=== PATIENT | male | born 1935 | race Caucasian/White ===

== ENCOUNTER 2019-01-02 07:30 | Inpatient (IN) | payer MEDICARE, OTHER ==
[2018-12-24 15:57] LABS: BASOPHILS # (AUTO) 0.1 X10'3 (0-0.2); EOSINOPHILS # (AUTO) 0.5 X10'3 (0-0.9); EOSINOPHILS % (AUTO) 7.2 % (0-6); LYMPHOCYTES # (AUTO) 1.8 X10'3 (1.1-4.8); LYMPHOCYTES % (AUTO) 27.7 % (21-51); MEAN CORPUSCULAR VOLUME 94.2 FL (78-98); MEAN PLATELET VOLUME 8.1 FL (7.4-10.4); MONOCYTES # (AUTO) 0.9 X10'3 (0-0.9); MONOCYTES % (AUTO) 14.6 % (2-12); NEUTROPHILS # (AUTO) 3.2 X10'3 (1.8-7.7); NEUTROPHILS % (AUTO) 49.5 % (42-75); PRE OP HEMATOCRIT 37.2 % (42.0-52.0); PRE OP HEMOGLOBIN 12.7 g/dL (14.0-17.9); PRE OP PLATELET COUNT 161 X10'3 (140-440); RED BLOOD COUNT 3.95 X10'6 (4.70-6.10); RED CELL DISTRIBUTION WIDTH 13.1 % (11.5-14.5)
[2018-12-24 16:19] LABS: ALBUMIN 3.7 G/DL (3.4-5.0); ALBUMIN/GLOBULIN RATIO 1.3 (1.1-1.5); ALKALINE PHOSPHATASE 70 IU/L (46-116); BLOOD UREA NITROGEN 27 MG/DL (7-18); BUN/CREATININE RATIO 23.1 (5.4-32.0); CHLORIDE 112 MMOL/L (99-107); CREATININE 1.17 MG/DL (0.60-1.10); PRE OP ALT 24 U/L (30-65); PRE OP ANION GAP 5 (8-16); PRE OP AST 19 U/L (10-37); PRE OP BILIRUB, TOTAL 0.5 MG/DL (0.0-1.0); PRE OP GLUCOSE 117 MG/DL (70-104); PRE OP SODIUM 143 MMOL/L (135-145); TOTAL CARBON DIOXIDE 26.1 MMOL/L (24-32); TOTAL PROTEIN 6.6 G/DL (6.4-8.2); eGFR 60 ML/MIN
[2018-12-24 16:21] LABS: PRE OP POTASSIUM 3.7 MMOL/L (3.4-5.1)
[2019-01-02] VITALS (16 sets, daily range): BP systolic 100–146; BP diastolic 48–98
[~2019-01-02] VITALS: Ht 182.9 cm; Wt 92.1 kg
[~2019-01-02 07:30] MED LIST: ASPI-12 PO; DOCUMENT DATE & TIME OF BETA-BLOCKER PO ONE; ESCI20TA29 PO; FURO-150 PO; LEVO50TA8 PO; NEBI5TAB10 PO; NIFE90TA2 PO; OMEP20TA5 PO; POTA20TA84 PO; SIMV20TA5 PO; TEMA30CA5 PO; VANCOMYCIN 1,500MG inj. 1,500 MG in normal saline 250ml IV soln 280 ML IV SCH; cefazolin/dext.iso 2gm/100 ML IV ONE; famotidine 20mg tablet PO ONE; ringers solution, lacted 1,000 ML IV SCH; tranexamic acid inj. 920 MG in normal saline 100ml IV soln 100 ML IV ONE
[2019-01-02] MEDS ORDERED: VANCOMYCIN 1,500MG inj. 1,500 MG in normal saline 250ml IV soln 280 ML IV ONE (08:25)
[2019-01-02] MEDS ORDERED: ROPIVAcaine 0.5% (5mg/ml) 30ml vial ONE ×2 (10:28→10:40)
[2019-01-02] MEDS ORDERED: ketorolac trometh. 30mg/ml inj. ONE (10:40)
[2019-01-02] MEDS ORDERED: LIDOcaine 1%/PF 5ML 10 MG/ML VIAL ONE (10:40)
[2019-01-02] MEDS ORDERED: propofol inj 20 ML IV ONE (10:40)
[2019-01-02] MEDS ORDERED: dexamethasone sod phosphate 10mg/ml inj ONE (11:25)
[2019-01-02] MEDS ORDERED: fentaNYL/PF 50MCG/1 ML 2ML syringe ONE (11:25)
[2019-01-02] MEDS ORDERED: sevoflurane 250ml liquid IH ONE (11:25)
[2019-01-02] MEDS ORDERED: midazolam 2 mg/2 ml injection ONE (11:25)
[2019-01-02] MEDS ORDERED: tranexamic acid inj. 920 MG in normal saline 100ml IV soln 100 ML IV ONE (11:35)
[2019-01-02] MEDS ORDERED: ondansetron/PF 4mg/2ml inj ONE (12:09)
[2019-01-02] MEDS ORDERED: ringers solution, lacted 1,000 ML IV SCH (12:31)
[2019-01-02] MEDS ORDERED: ROPIVAcaine 0.2%/PF PAIN PUMP 400 ML IJ SCH (12:31)
[2019-01-02] MEDS ORDERED: fentaNYL/PF 50MCG/1 ML 2ML syringe IV PRN ×2 (12:35)
[2019-01-02] MEDS ORDERED: morphine 4 MG/ML inj SYRINge IV PRN ×2 (12:35)
[2019-01-02] MEDS ORDERED: hydrALAZINE 20mg/ml inj. IV PRN (12:35)
[2019-01-02] MEDS ORDERED: ondansetron/PF 4mg/2ml inj IV PRN ×2 (12:35→14:05)
[2019-01-02] MEDS ORDERED: enalaprilat dihydrate 2.5mg/2ml vial IV PRN (12:35)
[2019-01-02] MEDS ORDERED: morphine 10mg/ml inj. ONE (13:20)
--- NOTE | 2019-01-02 13:57 | NUR ---
Received from OR via [facility]TH[facility] BED WITH [facility] , accompanied by Anesthesiologist MAY and report given by Anesthesiolgist. PATIENT WITH 18G PIV IN LEFT UE RUNNING LR AT 100. ORAL AIRWAY IN PLACE. RIGHT SLING ON, + RADIAL PULSE, POWDER PACK, AND SHOULDER WRAP. SCDS DONNED IN RR. 2 HEARING AIDS PRESENT AND GLASSES PRESENT. Addendum: 01/02/19 at 1410 by Negro Granados RN, RN Amended: Links added.
[2019-01-02] MEDS ORDERED: magnesium hydroxide 30ml (MOM) UD suspension PO PRN (14:05)
[2019-01-02] MEDS ORDERED: HYDROmorphone inj. 0.5 MG/0.5 ML DISP.SYRIN IV PRN (14:05)
[2019-01-02] MEDS ORDERED: diphenhydrAMINE 25mg capsule PO PRN ×2 (14:05)
[2019-01-02] MEDS ORDERED: oxyCODONE IR 5mg (immed. release) tablet PO PRN ×2 (14:05)
[2019-01-02] MEDS ORDERED: bisacodyl 10mg suppository rectal RC PRN (14:05)
[2019-01-02] MEDS ORDERED: acetaminophen 325mg tablet PO PRN (14:05)
[2019-01-02] MEDS ORDERED: HYDROmorphone 1 mg/ml syringe IV PRN (14:05)
--- NOTE | 2019-01-02 14:57 | NUR ---
ALL CRITERIA FOR TRANSFER TO THE FLOOR HAS BEEN ACHIEVED. VSS. BED LOW, CALL LIGHT AND VS. SET IN PLACE. RN PRESENT TO ACCEPT CARE. PATIENT RESTING COMFORTABLY IN BED. BELONGINGS SENT WITH PATIENT. DRESSINGS CDI. ONE BAG OF BELONGINGS, 2 HEARING AIDS PRESENT, DENTURES IN PATIENT MOUTH. PATIENT DENIES PAIN. CATALINA PEMBERTON PRESENT TO ACCEPT CARE AND ASSIST WITH SET UP OF VS ETC. CARE TURNED OVER. Addendum: 01/02/19 at 1508 by Negro Wolfe - CATALINA ARNOLD Amended: Links added.
--- NOTE | 2019-01-02 15:00 | NUR ---
ASSUMED CARE, RECEIVED REPORT FROM BOBBY ARNOLD, POST OP VITALS STARTED, FAMILY AT BEDSIDE, 0/10 PAIN, WILL CONTINUE TO MONITOR.
[2019-01-02] MEDS: ceFAZolin 1GM/D5W- ADD-VANTAGE 50 ML IV SCH ×2 (16:22→23:44)
[2019-01-02] MEDS: potassium cl 20mEq in 1/2 NS 1,000 ML IV SCH ×2 (16:23→22:01)
[2019-01-02] MEDS ORDERED: tranexamic acid inj. 900 MG in normal saline 100ml IV soln 100 ML IV ONE (17:00)
--- NOTE | 2019-01-02 18:15 | NUR ---
Problems reprioritized. Patient report given, questions answered & plan of care reviewed with REGAN ARNOLD.
[2019-01-02] MEDS: acetaminophen 325mg tablet PO SCH (20:00)
[2019-01-02] MEDS ORDERED: vancomycin/NS 1 GM ADD-VANTAGE 250 ML IV SCH (20:00)
[2019-01-02] MEDS: NIFEdipine XL 30mg tablet PO SCH (20:26)
[2019-01-02] MEDS: potassium Cl 20 mEq SR tablet PO SCH (20:26)
[2019-01-02] MEDS: ketorolac tromethamine 15mg/ml inj. IV SCH (20:27)
[2019-01-02] MEDS ORDERED: sennosides 8.6mg tablet PO SCH (21:00)
[2019-01-02] MEDS ORDERED: temazepam 15mg capsule PO SCH (21:00)
[2019-01-02] MEDS ORDERED: atorvastatin 10mg tablet PO SCH (21:00)
[2019-01-03] MEDS: acetaminophen 325mg tablet PO SCH ×2 (01:39→08:07)
[2019-01-03] MEDS: ketorolac tromethamine 15mg/ml inj. IV SCH ×2 (01:39→08:07)
[2019-01-03 02:00] VITALS: BP 118/60
[2019-01-03] MEDS: potassium cl 20mEq in 1/2 NS 1,000 ML IV SCH ×2 (03:38→08:14)
[2019-01-03 06:00] VITALS: BP 131/68
[2019-01-03 06:14] LABS: BASOPHILS % (AUTO) 0.2 % (0-1); EOSINOPHILS % (AUTO) 0 % (0-6); HEMOGLOBIN 10.7 g/dl (14.0-17.9); LYMPHOCYTES # (AUTO) 1.1 X10'3 (1.1-4.8); MEAN CORPUSCULAR HEMOGLOBIN 32.3 PG (27.0-31.0); MEAN CORPUSCULAR HGB CONC 34.6 g/dL (33.0-36.5); MEAN CORPUSCULAR VOLUME 93.6 FL (78-98); MEAN PLATELET VOLUME 8.3 FL (7.4-10.4); MONOCYTES # (AUTO) 1.3 X10'3 (0-0.9); MONOCYTES % (AUTO) 12.1 % (2-12); NEUTROPHILS # (AUTO) 8.7 X10'3 (1.8-7.7); NEUTROPHILS % (AUTO) 77.7 % (42-75); PLATELET COUNT 112 X10'3 (140-440); RED BLOOD COUNT 3.31 X10'6 (4.70-6.10); RED CELL DISTRIBUTION WIDTH 13.1 % (11.5-14.5); WHITE BLOOD COUNT 11.2 X10'3 (4.5-11.0)
[2019-01-03 06:24] LABS: ANION GAP 6 (8-16); CHLORIDE 109 MMOL/L (99-107); SODIUM 138 MMOL/L (135-145); TOTAL CARBON DIOXIDE 23.3 MMOL/L (24-32)
--- NOTE | 2019-01-03 06:30 | NUR ---
Problems reprioritized. Patient report given, questions answered & plan of care reviewed with Dk ARNOLD.
[2019-01-03] MEDS ORDERED: levoTHYROXINE 25mcg tablet PO SCH (07:00)
[2019-01-03] MEDS ORDERED: metoprolol tartrate 25mg tablet PO SCH (08:00)
[2019-01-03] MEDS ORDERED: citalopram 20mg tablet PO SCH (08:00)
[2019-01-03] MEDS ORDERED: pantoprazole 40mg Tablet.DR PO SCH (08:00)
[2019-01-03] MEDS ORDERED: non-formulary drug (Aspirin/Calcium Carbonate/Mag (Aspirin Buffered 325 Mg Tab) 1 TAB) PO SCH (08:00)
[2019-01-03] MEDS ORDERED: furosemide 20MG tablet PO SCH (08:00)
[2019-01-03] MEDS: NIFEdipine XL 30mg tablet PO SCH (08:08)
[2019-01-03] MEDS: potassium Cl 20 mEq SR tablet PO SCH (08:08)
[2019-01-03] MEDS ORDERED: aspirin 325mg tablet PO SCH (08:30)
[2019-01-03 09:45] VITALS: BP 135/74
--- NOTE | 2019-01-03 10:45 | NUR ---
Patient discharged home with all belongings instructions given to patient and with understanding, patient stable for discharge, onQ-pump instructions went over with patient and questions answered
[2019-01-03] MEDS ORDERED: celeCOXIB 100mg capsule PO SCH (20:00)
[2019-01-04] MEDS ORDERED: acetaminophen 325mg tablet PO PRN (14:05)
== END 2019-01-03 10:46 | disposition home or self-care (01) | DRG 483 ==
LOC: PAS IN 08:12 → EDSTATUS 10:00 → ORTHO 4S 14:58
PROVIDERS: ADMIT Orthopaedic Surgery; ATTEND Orthopaedic Surgery
PROC: 0LS30ZZ Reposition Right Upper Arm Tendon, Open Approach (ICD-10-PCS; 2019-01-02)
PROC: 3E0T3BZ Introduction of Anesthetic Agent into Peripheral Nerves and Plexi, Percutaneous Approach (ICD-10-PCS; 2019-01-02)
PROC: 0RRJ00Z Replacement of Right Shoulder Joint with Reverse Ball and Socket Synthetic Substitute, Open Approach (ICD-10-PCS; principal; 2019-01-02 11:25)
DX: M19.011 Primary osteoarthritis, right shoulder (principal); M25.511 Pain in right shoulder; M65.811 Other synovitis and tenosynovitis, right shoulder; M75.121 Complete rotator cuff tear or rupture of right shoulder, not specified as traumatic; M75.21 Bicipital tendinitis, right shoulder; G47.30 Sleep apnea, unspecified; I10 Essential (primary) hypertension; F32.9 Major depressive disorder, single episode, unspecified; Z87.891 Personal history of nicotine dependence
CPT/HCPCS: 36415; 80051; 80053; 82948; 84443; 85025; 87070; 97116; 97161; 97530; A4565; A7000; G0378; J0690; J1100; J1885; J2001; J2250; J2270; J2405; J2704; J2795; J3010; J3370; J7030; J7040; J7120

== ENCOUNTER 2020-10-19 15:16 | Outpatient (CLI) | payer OTHER ==
[~2020-10-19 15:16] MED LIST changes: -DOCUMENT DATE & TIME OF BETA-BLOCKER PO ONE; +SIMV-42 PO; -SIMV20TA5 PO; -VANCOMYCIN 1,500MG inj. 1,500 MG in normal saline 250ml IV soln 280 ML IV SCH; -cefazolin/dext.iso 2gm/100 ML IV ONE; -famotidine 20mg tablet PO ONE; -ringers solution, lacted 1,000 ML IV SCH; -tranexamic acid inj. 920 MG in normal saline 100ml IV soln 100 ML IV ONE
== END 2020-10-19 23:59 | disposition home or self-care (01) ==
LOC: RT 15:16
PROVIDERS: ATTEND Orthopaedic Surgery
DX: R94.2 Abnormal results of pulmonary function studies (principal); M81.0 Age-related osteoporosis without current pathological fracture; M47.819 Spondylosis without myelopathy or radiculopathy, site unspecified
CPT/HCPCS: 71046; 94060; 94760

== ENCOUNTER 2021-09-01 11:40 | Emergency (ER) | payer OTHER, MEDICARE ==
[~2021-09-01] VITALS: Ht 182.9 cm; Wt 88.2 kg
[2021-09-01] MEDS ORDERED: ketorolac trometh. 30mg/ml inj. IV ONE (12:20)
[2021-09-01] MEDS ORDERED: acetaminophen 325mg tablet PO ONE (12:20)
[2021-09-01 12:38] LABS: BASOPHILS % (AUTO) 0.8 % (0-1); EOSINOPHILS # (AUTO) 0.3 X10'3 (0-0.9); EOSINOPHILS % (AUTO) 5.2 % (0-6); HEMATOCRIT 37.5 % (42.0-52.0); HEMOGLOBIN 12.5 g/dl (14.0-17.9); LYMPHOCYTES # (AUTO) 1.7 X10'3 (1.1-4.8); LYMPHOCYTES % (AUTO) 26.8 % (21-51); MEAN CORPUSCULAR HEMOGLOBIN 30.8 PG (27.0-31.0); MEAN CORPUSCULAR HGB CONC 33.3 g/dL (33.0-36.5); MEAN CORPUSCULAR VOLUME 92.4 FL (78-98); MEAN PLATELET VOLUME 7.8 FL (7.4-10.4); MONOCYTES # (AUTO) 1.1 X10'3 (0-0.9); MONOCYTES % (AUTO) 16.9 % (2-12); NEUTROPHILS # (AUTO) 3.1 X10'3 (1.8-7.7); NEUTROPHILS % (AUTO) 50.3 % (42-75); PLATELET COUNT 152 X10'3 (140-440); RED BLOOD COUNT 4.06 X10'6 (4.70-6.10); RED CELL DISTRIBUTION WIDTH 14.4 % (11.5-14.5); WHITE BLOOD COUNT 6.3 X10'3 (4.5-11.0)
[2021-09-01 12:52] LABS: ALANINE AMINOTRANSFERASE 24 U/L (12-78); ALBUMIN 3.8 G/DL (3.4-5.0); ALBUMIN/GLOBULIN RATIO 1.2 (1.1-1.5); ALKALINE PHOSPHATASE 58 IU/L (46-116); ANION GAP 9 (8-16); ASPARTATE AMINO TRANSFERASE 20 U/L (10-37); BILIRUBIN,TOTAL 0.6 MG/DL (0.1-1.0); BLOOD UREA NITROGEN 25 MG/DL (7-18); BUN/CREATININE RATIO 23.4 (5.4-32.0); CALCIUM 8.9 MG/DL (8.5-10.1); CHLORIDE 108 MMOL/L (99-107); CREATININE 1.07 MG/DL (0.60-1.10); GLUCOSE 102 MG/DL (70-104); POTASSIUM 3.4 MMOL/L (3.5-5.1); SODIUM 145 MMOL/L (135-145); TOTAL CARBON DIOXIDE 27.8 MMOL/L (24-32); eGFR 66 ML/MIN
[2021-09-01 13:01] LABS: MAGNESIUM 2.3 MG/DL (1.5-2.4)
[2021-09-01] MEDS ORDERED: ketorolac trometh. 30mg/ml inj. IM ONE (13:10)
[2021-09-01 13:13] LABS: TOTAL CELLS COUNTED 100
[2021-09-01 13:14] LABS: PLATELET ESTIMATE NORMAL
[2021-09-01] MEDS ORDERED: ONDA-103 PO (13:41)
[2021-09-01] MEDS ORDERED: HYDR-3965 PO (13:41)
[2021-09-01] MEDS ORDERED: AZIT-83 PO (13:53)
[2021-09-01 14:37] VITALS: BP 127/69
== END 2021-09-01 14:39 | disposition home or self-care (01) ==
LOC: ER 11:40
DX: M25.552 Pain in left hip (principal); R07.81 Pleurodynia; J18.9 Pneumonia, unspecified organism; K21.9 Gastro-esophageal reflux disease without esophagitis; F32.A Depression, unspecified; Z88.8 Allergy status to other drugs, medicaments and biological substances; Z79.82 Long term (current) use of aspirin; Z79.899 Other long term (current) drug therapy
CPT/HCPCS: 36415; 71045; 72131; 72192; 80053; 83735; 83880; 84484; 85007; 85025; 93005; 96372; 99285; J1885

== ENCOUNTER 2022-07-09 06:21 | Inpatient (IN) | payer MEDICARE, OTHER ==
[2022-07-04 17:11] LABS: BASOPHILS # (AUTO) 0.1 X10'3 (0-0.2); BASOPHILS % (AUTO) 0.8 % (0-1); EOSINOPHILS # (AUTO) 0.3 X10'3 (0-0.9); LYMPHOCYTES # (AUTO) 2.1 X10'3 (1.1-4.8); LYMPHOCYTES % (AUTO) 25.9 % (21-51); MEAN CORPUSCULAR HEMOGLOBIN 31.7 PG (27.0-31.0); MEAN CORPUSCULAR HGB CONC 33.9 g/dL (33.0-36.5); MEAN CORPUSCULAR VOLUME 93.3 FL (78-98); MEAN PLATELET VOLUME 7.9 FL (7.4-10.4); MONOCYTES # (AUTO) 1.2 X10'3 (0-0.9); MONOCYTES % (AUTO) 15.1 % (2-12); NEUTROPHILS # (AUTO) 4.4 X10'3 (1.8-7.7); NEUTROPHILS % (AUTO) 54.2 % (42-75); PRE OP HEMATOCRIT 37.7 % (42.0-52.0); PRE OP HEMOGLOBIN 12.8 g/dL (14.0-17.9); PRE OP PLATELET COUNT 179 X10'3 (140-440); RED BLOOD COUNT 4.04 X10'6 (4.70-6.10); RED CELL DISTRIBUTION WIDTH 13.6 % (11.5-14.5)
[2022-07-04 17:37] LABS: ALBUMIN 3.8 G/DL (3.4-5.0); ALKALINE PHOSPHATASE 68 IU/L (46-116); BLOOD UREA NITROGEN 31 MG/DL (7-18); BUN/CREATININE RATIO 23.8 (5.4-32.0); CALCIUM 8.8 MG/DL (8.5-10.1); CHLORIDE 103 MMOL/L (99-107); PRE OP ALT 14 U/L (30-65); PRE OP ANION GAP 10 (8-16); PRE OP AST 20 U/L (10-37); PRE OP BILIRUB, TOTAL 0.6 MG/DL (0.0-1.0); PRE OP GLUCOSE 100 MG/DL (70-104); PRE OP SODIUM 142 MMOL/L (135-145); TOTAL CARBON DIOXIDE 28.6 MMOL/L (24-32); TOTAL PROTEIN 7.5 G/DL (6.4-8.2); eGFR 52 ML/MIN
[2022-07-04 17:40] LABS: PRE OP POTASSIUM 2.9 MMOL/L (3.4-5.1)
[~2022-07-09] VITALS: Ht 182.9 cm; Wt 92.2 kg
[2022-07-09] VITALS (31 sets, daily range): BP systolic 108–150; BP diastolic 47–106
[~2022-07-09 06:21] MED LIST changes: +APIX5TAB3 PO; -ASPI-12 PO; +CELE-85 PO; +HYDR25TA4 PO; +LOSA100T57 PO; -OMEP20TA5 PO; +OMEP40CA21 PO; +POTA10CA45 PO; -POTA20TA84 PO; +ROSU20TA31 PO; -SIMV-42 PO; -TEMA30CA5 PO; +ceFAZolin inj. 2,000 MG in dextrose 5%-water 100 ML IV ONE; +famotidine 20mg tablet PO ONE; +ringers solution, lacted 1,000 ML IV SCH; +tranexamic acid 650mg tablet PO ONE; +vancomycin 1,500 MG in NS 300ml IV soln IV ONE
--- NOTE | 2022-07-09 06:30 | NUR ---
PRE-OP NEURO CHECKS/CSM COMPLETED AND W/N/L. RADIAL PULSES STRONG AND MARKED. PT READ EDUCATION PACKET AND COMPLETED 5 DAYS OF SHOWERS AND NASAL OINTMENT. Addendum: 07/09/22 at 0935 by Manuela Santizo RN Amended: Links added.
[2022-07-09] MEDS ORDERED: ketorolac trometh. 30mg/ml inj. ONE (09:15)
[2022-07-09] MEDS ORDERED: ROPIVAcaine 0.5% (5mg/ml) 30ml vial ONE ×2 (09:15→11:26)
[2022-07-09] MEDS ORDERED: FENTANYL CITRATE/PF 50 MCG/1 ML VIAL ONE (09:27)
[2022-07-09] MEDS ORDERED: MIDAZolam 1 MG/ML 5ML VIAL ONE (09:28)
[2022-07-09] MEDS ORDERED: propofol inj 20 ML IV ONE (09:28)
[2022-07-09] MEDS ORDERED: morphine 4 MG/ML inj SYRINge IV PRN (09:45)
[2022-07-09] MEDS ORDERED: morphine 2 MG/ML inj. syringe IV PRN (09:45)
[2022-07-09] MEDS ORDERED: ondansetron/PF 4mg/2ml inj IV PRN ×2 (09:45→11:50)
[2022-07-09] MEDS ORDERED: ringers solution, lacted 1,000 ML IV SCH (09:45)
[2022-07-09] MEDS ORDERED: meperidine/PF 25mg/ml syringe IV PRN ×3 (09:45)
[2022-07-09] MEDS ORDERED: proCHLORperazine 10 MG/2 ml inj IV PRN (09:45)
[2022-07-09] MEDS ORDERED: sevoflurane 250ml liquid IH ONE (09:46)
[2022-07-09] MEDS ORDERED: ROPIVAcaine 0.2% (10 MG/5 ML) BOLUS INJECTION INTERSCALE PRN (09:55)
[2022-07-09] MEDS ORDERED: ROPIVAcaine 0.2%/PF PUMP/bolus 545 ML INTERSCALE SCH (09:56)
[2022-07-09] MEDS ORDERED: ePHEDrine 50MG/ML INJ. ONE (11:26)
[2022-07-09] MEDS ORDERED: dexamethasone sod phosphate 4mg/ml inj. ONE (11:27)
[2022-07-09] MEDS ORDERED: naloxone 0.4 mg/ml inj IV PRN (11:50)
[2022-07-09] MEDS ORDERED: HYDROmorphone 1 mg/ml syringe IV PRN (11:50)
[2022-07-09] MEDS ORDERED: oxyCODONE IR 5mg (immed. release) tablet PO PRN ×2 (11:50)
[2022-07-09] MEDS ORDERED: bisacodyl 10mg suppository rectal RC PRN (11:50)
[2022-07-09] MEDS ORDERED: acetaminophen 325mg tablet PO PRN ×2 (11:50)
[2022-07-09] MEDS ORDERED: diphenhydrAMINE 25mg capsule PO PRN ×2 (11:50)
[2022-07-09] MEDS ORDERED: HYDROcodone/acetaminophen 10/325mg tab PO PRN ×2 (11:50)
[2022-07-09] MEDS ORDERED: magnesium hydroxide 30ml (MOM) UD suspension PO PRN (11:50)
[2022-07-09] MEDS ORDERED: HYDROmorphone inj. 0.5 MG/0.5 ML DISP.SYRIN IV PRN (11:50)
--- NOTE | 2022-07-09 11:56 | NUR ---
Received from OR via , accompanied by Anesthesiologist KELLEE AND OR NURSE TRAVIS and report given by Anesthesiolgist. PT IS DROWSY BUT ABLE TO FOLLOW VERBAL COMMANDS. DENIES PAIN OR DISCOMFORT. ETT TUBE IN PLACE UPON ARRIVAL TO UNIT; REMOVED BY KELLEE. VSS Addendum: 07/09/22 at 1223 by Alessandra Bermudez RN Amended: Links added.
--- NOTE | 2022-07-09 15:26 | NUR ---
Report called to receiving nurse. Transferred via [facility] WITH 4 BAGS OF Belongings AT BEDSIDE IN PACU; WENT HOME AT TIME OF TRANSPORT TO ROOM. VSS. PT ABLE TO VOID X3 IN URINAL. PT TOLERATING ORAL INTAKE. DENIES PAIN OR DISCOMFORT. ONQ AT 2ML/HR.. Special Issues communicated to receiving nurse. Addendum: 07/09/22 at 1540 by Alessandra Bermudez RN Amended: Links added.
--- NOTE | 2022-07-09 15:58 | NUR ---
Received patient to room 360B. Patient is alert and oriented in no apparent acute distress. Patient denies pain or discomfort at this time. Left shoulder with island dressing CDI, cool power pack replaced, left arm in sling. Post op vitals initiated. Patient oriented to room and call light. Call light placed within patient's reach.
--- NOTE | 2022-07-09 15:59 | NUR ---
Patient educated on use of ONQ ball. ONQ ball at 2ml/hr.
[2022-07-09] MEDS: ceFAZolin/D5W- 1GM premix 50 ML IV SCH (16:55)
--- NOTE | 2022-07-09 18:08 | NUR ---
Problems reprioritized. Patient report given, questions answered & plan of care reviewed with CATALINA Valderrama.
[2022-07-09] MEDS ORDERED: vancomycin/NS 1 GM ADD-VANTAGE 250 ML IV SCH (20:00)
[2022-07-09] MEDS: NIFEdipine XL 30mg tablet PO SCH (20:25)
[2022-07-09] MEDS: apixaban 5mg tablet PO SCH (20:26)
[2022-07-09] MEDS: potassium cl 20mEq in 1/2 NS 1,000 ML IV SCH (20:27)
[2022-07-09] MEDS ORDERED: sennosides 8.6mg tablet PO SCH (21:00)
[2022-07-09] MEDS ORDERED: celeCOXIB 100mg capsule PO SCH (21:00)
[2022-07-10] MEDS: ceFAZolin/D5W- 1GM premix 50 ML IV SCH (00:39)
[2022-07-10 02:00] VITALS: BP 132/61
[2022-07-10] MEDS: potassium cl 20mEq in 1/2 NS 1,000 ML IV SCH (03:50)
--- NOTE | 2022-07-10 06:24 | NUR ---
Patient in room [facility]. I have received report from CATALINA Valderrama and had the opportunity to ask questions and assume patient care.
[2022-07-10 06:31] VITALS: BP 100/61
[2022-07-10 06:37] LABS: BASOPHILS % (AUTO) 0.1 % (0-1); EOSINOPHILS % (AUTO) 0 % (0-6); HEMATOCRIT 31.7 % (42.0-52.0); HEMOGLOBIN 10.8 g/dl (14.0-17.9); LYMPHOCYTES # (AUTO) 1.4 X10'3 (1.1-4.8); LYMPHOCYTES % (AUTO) 9.8 % (21-51); MEAN CORPUSCULAR HEMOGLOBIN 31.6 PG (27.0-31.0); MEAN CORPUSCULAR HGB CONC 34.1 g/dL (33.0-36.5); MEAN CORPUSCULAR VOLUME 92.7 FL (78-98); MONOCYTES # (AUTO) 2.3 X10'3 (0-0.9); MONOCYTES % (AUTO) 16.4 % (2-12); NEUTROPHILS # (AUTO) 10.3 X10'3 (1.8-7.7); NEUTROPHILS % (AUTO) 73.7 % (42-75); PLATELET COUNT 152 X10'3 (140-440); RED BLOOD COUNT 3.42 X10'6 (4.70-6.10); RED CELL DISTRIBUTION WIDTH 13.6 % (11.5-14.5)
[2022-07-10] MEDS ORDERED: pantoprazole 40mg Tablet.DR PO SCH (07:30)
[2022-07-10 07:34] LABS: TOTAL CELLS COUNTED 100
[2022-07-10 07:35] LABS: PLATELET ESTIMATE NORMAL
[2022-07-10] MEDS: apixaban 5mg tablet PO SCH (07:36)
[2022-07-10] MEDS ORDERED: potassium chloride 10mEq ER tablet PO SCH (08:00)
[2022-07-10] MEDS ORDERED: levoTHYROXINE 25mcg tablet PO SCH (08:00)
[2022-07-10] MEDS ORDERED: furosemide 20MG tablet PO SCH (08:00)
[2022-07-10] MEDS ORDERED: ESCITALOPRAM OXALATE 5 MG TABLET PO SCH (08:00)
[2022-07-10] MEDS ORDERED: losartan 50mg tablet PO SCH (08:00)
[2022-07-10] MEDS ORDERED: HYDROchlorothiazide 25mg tablet PO SCH (08:00)
[2022-07-10] MEDS ORDERED: atorvastatin 20mg tablet PO SCH (08:00)
[2022-07-10] MEDS ORDERED: metoprolol tartrate 50mg tablet PO SCH (08:03)
[2022-07-10 08:55] LABS: CHLORIDE 104 MMOL/L (99-107); POTASSIUM 3.7 MMOL/L (3.5-5.1); SODIUM 141 MMOL/L (135-145)
[2022-07-10 08:57] LABS: ANION GAP 12 (8-16); TOTAL CARBON DIOXIDE 24.8 MMOL/L (24-32)
[2022-07-10] MEDS: NIFEdipine XL 30mg tablet PO SCH (09:01)
[2022-07-10 09:02] VITALS: BP 132/70
[2022-07-10 11:08] VITALS: BP 115/70
--- NOTE | 2022-07-10 12:05 | NUR ---
Patient was alert and oriented in no apparent acute distress. Discussed with patient dc instructions including ONQ ball management and patient verbalizes understanding of teaching. Patient dc'd with all personal belongings as well as x2 cool powder packs. Patient escorted out in wheelchair accompanied by x1 staff and spouse.
[2022-07-10] MEDS ORDERED: celeCOXIB 100mg capsule PO SCH (21:00)
== END 2022-07-10 11:47 | disposition home or self-care (01) | DRG 483 ==
LOC: PAS IN 06:21 → SUR 3N 15:35
PROVIDERS: ADMIT Orthopaedic Surgery; ATTEND Orthopaedic Surgery
PROC: 0LS40ZZ Reposition Left Upper Arm Tendon, Open Approach (ICD-10-PCS; 2022-07-09)
PROC: 5A09357 Assistance with Respiratory Ventilation, Less than 24 Consecutive Hours, Continuous Positive Airway Pressure (ICD-10-PCS; 2022-07-09)
PROC: 3E0T3BZ Introduction of Anesthetic Agent into Peripheral Nerves and Plexi, Percutaneous Approach (ICD-10-PCS; 2022-07-09)
PROC: 3E0T33Z Introduction of Anti-inflammatory into Peripheral Nerves and Plexi, Percutaneous Approach (ICD-10-PCS; 2022-07-09)
PROC: 0RRK00Z Replacement of Left Shoulder Joint with Reverse Ball and Socket Synthetic Substitute, Open Approach (ICD-10-PCS; principal; 2022-07-09 09:46)
DX: M19.012 Primary osteoarthritis, left shoulder (principal); Z96.611 Presence of right artificial shoulder joint; I48.91 Unspecified atrial fibrillation; M75.112 Incomplete rotator cuff tear or rupture of left shoulder, not specified as traumatic; M75.22 Bicipital tendinitis, left shoulder; M65.812 Other synovitis and tenosynovitis, left shoulder; I10 Essential (primary) hypertension; G47.30 Sleep apnea, unspecified; Z79.899 Other long term (current) drug therapy
CPT/HCPCS: 36415; 80051; 80053; 84443; 85007; 85025; 87081; 87811; 93005; 97110; 97116; 97161; A4618; A7000; C1776; G0378; J0690; J1100; J1885; J2175; J2250; J2704; J2795; J3010; J3370; J3480; J3490; J7040; J7060; J7120

== ENCOUNTER 2023-05-17 09:28 | Day surgery (SDC) | payer MEDICARE, OTHER ==
[~2023-05-17] VITALS: Ht 182.9 cm; Wt 81.0 kg
[2023-05-17] VITALS (11 sets, daily range): BP systolic 115–146; BP diastolic 81–102; PULSE 74–84; RESP 14–23; TEMP 97.5; O2SAT 92–96
[~2023-05-17 09:28] MED LIST changes: +CELE-127 PO; -CELE-85 PO; -LOSA100T57 PO; +LOSA100T58 PO; -POTA10CA45 PO; +POTA10CA85 PO; -ROSU20TA31 PO; +ROSU20TA73 PO; -ceFAZolin inj. 2,000 MG in dextrose 5%-water 100 ML IV ONE; -famotidine 20mg tablet PO ONE; -ringers solution, lacted 1,000 ML IV SCH; -tranexamic acid 650mg tablet PO ONE; -vancomycin 1,500 MG in NS 300ml IV soln IV ONE
[2023-05-17] MEDS ORDERED: LIDOcaine 1% (10mg/ml) 2ml vial ONE (10:06)
[2023-05-17] MEDS ORDERED: verapamil 2.5 mg/ml inj IV ONE (10:06)
[2023-05-17] MEDS ORDERED: iohexol 350 MG/ML 50ML vial IV ONE (10:07)
[2023-05-17] MEDS ORDERED: fentaNYL/PF 50MCG/1 ML 2ML syringe ONE (10:07)
[2023-05-17] MEDS ORDERED: heparin 1,000unit/ml 10ml vial 10 ML ONE (10:07)
[2023-05-17] MEDS ORDERED: midazolam 1 mg/ML 2ml injection ONE (10:07)
[2023-05-17] MEDS ORDERED: iohexol 350MG/ML 100ml bottle IV ONE ×2 (10:07→11:53)
[2023-05-17] MEDS ORDERED: diphenhydrAMINE 25mg capsule PO PRN (10:10)
[2023-05-17] MEDS ORDERED: normal saline 1,000 ML IV SCH (10:10)
[2023-05-17] MEDS ORDERED: nitroGLYCERIN 500mcg/5mL D5W 5 ML IV ONE (10:14)
[2023-05-17] MEDS ORDERED: DOXA2TAB46 PO (10:18)
[2023-05-17] MEDS ORDERED: POTA-208 PO (10:19)
[2023-05-17] MEDS ORDERED: BISO10TA6 PO (10:19)
[2023-05-17 10:24] LABS: BASOPHILS # (AUTO) 0.1 X10'3 (0-0.2); BASOPHILS % (AUTO) 0.9 % (0-1); EOSINOPHILS # (AUTO) 0.3 X10'3 (0-0.9); EOSINOPHILS % (AUTO) 4.5 % (0-6); HEMATOCRIT 35.7 % (42.0-52.0); HEMOGLOBIN 11.7 g/dl (14.0-17.9); LYMPHOCYTES # (AUTO) 1.2 X10'3 (1.1-4.8); LYMPHOCYTES % (AUTO) 18.5 % (21-51); MEAN CORPUSCULAR HEMOGLOBIN 28.6 PG (27.0-31.0); MEAN CORPUSCULAR HGB CONC 32.8 g/dL (33.0-36.5); MEAN CORPUSCULAR VOLUME 87.1 FL (78-98); MEAN PLATELET VOLUME 7.6 FL (7.4-10.4); MONOCYTES % (AUTO) 15.5 % (2-12); NEUTROPHILS % (AUTO) 60.6 % (42-75); PLATELET COUNT 182 X10'3 (140-440); RED BLOOD COUNT 4.09 X10'6 (4.70-6.10); RED CELL DISTRIBUTION WIDTH 15.3 % (11.5-14.5); WHITE BLOOD COUNT 6.6 X10'3 (4.5-11.0)
[2023-05-17 10:35] LABS: INR 1.1 INR; PROTHROMBIN TIME 12.1 SECONDS (9.0-12.0)
[2023-05-17 10:37] LABS: ALBUMIN 3.5 G/DL (3.4-5.0); ANION GAP 9 (8-16); BLOOD UREA NITROGEN 27 MG/DL (7-18); BUN/CREATININE RATIO 16.3 (10.0-20.0); CALCIUM 9.1 MG/DL (8.5-10.1); CHLORIDE 103 MMOL/L (99-107); CREATININE 1.66 MG/DL (0.60-1.10); GLUCOSE 112 MG/DL (70-104); POTASSIUM 3.1 MMOL/L (3.5-5.1); SODIUM 143 MMOL/L (135-145); TOTAL CARBON DIOXIDE 30.8 MMOL/L (24-32); eCRCL 34 ML/MIN; eGFR 39 ML/MIN
[2023-05-17] MEDS ORDERED: clopidogrel 300mg tablet ONE (12:10)
[2023-05-17] MEDS ORDERED: normal saline 1000ml 1,000 ML IV SCH (12:20)
[2023-05-17] MEDS ORDERED: potassium Cl 20 mEq SR tablet PO ONE (12:20)
== END 2023-05-17 16:10 | disposition home or self-care (01) ==
LOC: SSTAY O 09:28
PROVIDERS: ATTEND Internal Medicine Cardiovascular Disease
DX: I42.0 Dilated cardiomyopathy (principal); I25.10 Atherosclerotic heart disease of native coronary artery without angina pectoris; I48.0 Paroxysmal atrial fibrillation; E78.5 Hyperlipidemia, unspecified; I10 Essential (primary) hypertension; E03.9 Hypothyroidism, unspecified; K21.9 Gastro-esophageal reflux disease without esophagitis; J44.9 Chronic obstructive pulmonary disease, unspecified; I73.9 Peripheral vascular disease, unspecified; I25.2 Old myocardial infarction; G47.33 Obstructive sleep apnea (adult) (pediatric); M19.90 Unspecified osteoarthritis, unspecified site; J61 Pneumoconiosis due to asbestos and other mineral fibers; F41.9 Anxiety disorder, unspecified; Z96.653 Presence of artificial knee joint, bilateral; Z86.73 Personal history of transient ischemic attack (TIA), and cerebral infarction without residual deficits; Z79.01 Long term (current) use of anticoagulants; Z79.899 Other long term (current) drug therapy; Z96.611 Presence of right artificial shoulder joint; Z98.890 Other specified postprocedural states; Z88.8 Allergy status to other drugs, medicaments and biological substances; Z82.49 Family history of ischemic heart disease and other diseases of the circulatory system
CPT/HCPCS: 80048; 85025; 85610; 93005; 93458; 99152; 99153; A6258; C1874; C9600; J1644; J2250; J3010; J3490; J7030; Q0163; Q9967; A6402; C1751; C1769; C1894

== ENCOUNTER 2023-10-04 07:38 | Day surgery (SDC) | payer MEDICARE, OTHER ==
[2023-10-04] VITALS (11 sets, daily range): BP systolic 133–167; BP diastolic 70–96; PULSE 64–72; RESP 14–17; TEMP 97.7; O2SAT 95–98
[~2023-10-04] VITALS: Ht 182.9 cm; Wt 86.0 kg
[2023-10-04] MEDS: sodium bicarbonate 1meq/ml syr 150 ML in dextrose 5%-water 1,000 ML IV ONE (07:30)
[~2023-10-04 07:38] MED LIST changes: +BISO10TA6 PO; -CELE-127 PO; +DOXA2TAB46 PO; -LOSA100T58 PO; -NEBI5TAB10 PO; -NIFE90TA2 PO; +POTA-208 PO; -POTA10CA85 PO
[2023-10-04] MEDS ORDERED: normal saline 1,000 ML IV SCH (08:05)
[2023-10-04] MEDS ORDERED: OMEP20CA16 PO (08:27)
[2023-10-04] MEDS ORDERED: SACU1TAB7 PO (08:27)
[2023-10-04] MEDS ORDERED: ALBU8HFA INH (08:27)
[2023-10-04] MEDS ORDERED: CLOP75TA34 PO (08:27)
[2023-10-04 08:50] LABS: BASOPHILS # (AUTO) 0.1 X10'3 (0-0.2); BASOPHILS % (AUTO) 1.3 % (0-1); EOSINOPHILS # (AUTO) 0.3 X10'3 (0-0.9); HEMATOCRIT 31.8 % (42.0-52.0); HEMOGLOBIN 10.5 g/dl (14.0-17.9); LYMPHOCYTES # (AUTO) 1.4 X10'3 (1.1-4.8); LYMPHOCYTES % (AUTO) 26.4 % (21-51); MEAN CORPUSCULAR HEMOGLOBIN 29.8 PG (27.0-31.0); MEAN CORPUSCULAR HGB CONC 33.1 g/dL (33.0-36.5); MEAN CORPUSCULAR VOLUME 90.1 FL (78-98); MEAN PLATELET VOLUME 7.2 FL (7.4-10.4); NEUTROPHILS # (AUTO) 2.4 X10'3 (1.8-7.7); NEUTROPHILS % (AUTO) 47.3 % (42-75); PLATELET COUNT 142 X10'3 (140-440); RED BLOOD COUNT 3.53 X10'6 (4.70-6.10); RED CELL DISTRIBUTION WIDTH 14.4 % (11.5-14.5); WHITE BLOOD COUNT 5.2 X10'3 (4.5-11.0)
[2023-10-04 09:04] LABS: INR 1.1 INR; PROTHROMBIN TIME 11.6 SECONDS (9.0-12.0)
[2023-10-04 09:17] LABS: CHLORIDE 109 MMOL/L (99-107); SODIUM 146 MMOL/L (135-145)
[2023-10-04] MEDS ORDERED: midazolam 1 mg/ML 2ml injection ONE (09:19)
[2023-10-04] MEDS ORDERED: verapamil 2.5 mg/ml inj IV ONE (09:19)
[2023-10-04] MEDS ORDERED: heparin 1,000unit/ml 10ml vial 10 ML ONE (09:19)
[2023-10-04] MEDS ORDERED: fentaNYL/PF 50MCG/1 ML 2ML syringe ONE (09:19)
[2023-10-04] MEDS ORDERED: LIDOcaine 1% (10mg/ml) 2ml vial ONE (09:19)
[2023-10-04] MEDS ORDERED: iohexol 350 MG/ML 50ML vial IV ONE (09:19)
[2023-10-04] MEDS ORDERED: iohexol 350MG/ML 100ml bottle IV ONE (09:19)
[2023-10-04] MEDS ORDERED: nitroGLYCERIN 500mcg/5mL D5W 5 ML IV ONE (09:27)
[2023-10-04] MEDS: diphenhydrAMINE 25mg capsule PO PRN (09:34)
[2023-10-04 09:43] LABS: ALBUMIN 3.2 G/DL (3.4-5.0); ANION GAP 11 (8-16); BLOOD UREA NITROGEN 27 MG/DL (7-18); CALCIUM 8.1 MG/DL (8.5-10.1); CREATININE 1.42 MG/DL (0.60-1.10); GLUCOSE 98 MG/DL (70-104); MAGNESIUM 2.1 MG/DL (1.5-2.4); TOTAL CARBON DIOXIDE 25.6 MMOL/L (24-32); eCRCL 40 ML/MIN; eGFR 47 ML/MIN
[2023-10-04 09:58] LABS: PLATELET ESTIMATE NORMAL; TOTAL CELLS COUNTED 100
[2023-10-04 09:59] LABS: ELLIPTOCYTES FEW
[2023-10-04] MEDS ORDERED: protamine sulfate 10mg/ml inj. ONE (11:26)
[2023-10-04] MEDS ORDERED: proCHLORperazine 10 MG/2 ml inj IV PRN (12:20)
[2023-10-04] MEDS ORDERED: HYDROcodone/acetaminophen 10/325mg tab PO PRN (12:20)
[2023-10-04] MEDS ORDERED: ondansetron/PF 4mg/2ml inj IV PRN (12:20)
[2023-10-04] MEDS ORDERED: HYDROcodone/acetaminophen 5mg/325mg tablet PO PRN (12:20)
== END 2023-10-04 16:10 | disposition home or self-care (01) ==
LOC: SSTAY O 07:38
PROVIDERS: ATTEND Internal Medicine Cardiovascular Disease
DX: I25.118 Atherosclerotic heart disease of native coronary artery with other forms of angina pectoris (principal); I10 Essential (primary) hypertension; E03.9 Hypothyroidism, unspecified; E78.5 Hyperlipidemia, unspecified; K21.9 Gastro-esophageal reflux disease without esophagitis; I48.0 Paroxysmal atrial fibrillation; G47.33 Obstructive sleep apnea (adult) (pediatric); J44.9 Chronic obstructive pulmonary disease, unspecified; I42.0 Dilated cardiomyopathy; F41.9 Anxiety disorder, unspecified; I73.9 Peripheral vascular disease, unspecified; M19.90 Unspecified osteoarthritis, unspecified site; Z86.73 Personal history of transient ischemic attack (TIA), and cerebral infarction without residual deficits; Z79.01 Long term (current) use of anticoagulants; Z79.890 Hormone replacement therapy; Z79.899 Other long term (current) drug therapy; Z90.49 Acquired absence of other specified parts of digestive tract; Z95.5 Presence of coronary angioplasty implant and graft; Z96.611 Presence of right artificial shoulder joint; Z96.653 Presence of artificial knee joint, bilateral; Z98.890 Other specified postprocedural states; Z88.8 Allergy status to other drugs, medicaments and biological substances; Z82.49 Family history of ischemic heart disease and other diseases of the circulatory system
CPT/HCPCS: 36415; 80048; 83735; 85025; 85610; 93005; 93458; 99152; 99153; J1644; J2250; J2720; J3010; J3490; J7030; J7070; Q0163; Q9967; 85007; A6258; A6402; A6449; C1769; C1894